=== PATIENT | male | born 1980 | race Caucasian/White ===

== ENCOUNTER 2019-04-23 09:02 | Emergency (ER) | payer BC ==
[~2019-04-23] VITALS: Ht 172.7 cm; Wt 97.7 kg
[2019-04-23] MEDS ORDERED: dayquil (09:12)
[2019-04-23] MEDS ORDERED: NS 1,000 ML IV ONE ×2 (09:45→11:15)
[2019-04-23] MEDS ORDERED: ALBUTEROL SULFATE 2.5 MG/0.5 ML INH NEB SOLN NEB ONE (10:00)
[2019-04-23 10:01] LABS: INFLUENZA A AMPLIFICATION NEGATIVE (NEGATIVE); INFLUENZA B AMPLIFICATION POSITIVE (NEGATIVE)
[2019-04-23 10:12] LABS: BASO % 0.5 % (0.0-1.0); HEMATOCRIT 54.3 % (42.0-52.0); HEMOGLOBIN 18.5 g/dl (13.5-17.5); LYMPH # 1.1 10^3/uL (1.5-5.0); LYMPH % 16.9 % (24.0-44.0); MEAN CORPUSCULAR HEMOGLOBIN 31.8 pg (27.0-33.0); MEAN CORPUSCULAR HGB CONC 34.1 g/dl (32.0-36.5); MEAN CORPUSCULAR VOLUME 93.3 fl (80.0-96.0); MONO # 0.7 10^3/uL (0.0-0.8); MONO % 11.3 % (0.0-5.0); NEUTROPHILS # 4.4 10^3/uL (1.5-8.5); NEUTROPHILS % 71.1 % (36.0-66.0); PLATELET COUNT, AUTOMATED 148 10^3/uL (150-450); RED BLOOD COUNT 5.82 10^6/uL (4.30-6.10); WHITE BLOOD COUNT 6.2 10^3/uL (4.0-10.0)
--- NOTE | 2019-04-23 10:35 | REP ---
PA and lateral chest, three views, two PA and single lateral views: There are no comparisons. The lung duke are clear. The cardiac size is normal. The rudy, mediastinum, and skeletal structures are unremarkable. Impression: Negative PA and lateral chest. Electronically Signed by Carlo Mercado MD 04/23/2019 10:27 A
[2019-04-23 12:00] VITALS: BP 129/77
[2019-04-23] MEDS ORDERED: ONDA4TAB6 PO (12:03)
== END 2019-04-23 12:53 | disposition home or self-care (01) ==
LOC: M ED 09:02
DX: J10.1 Influenza due to other identified influenza virus with other respiratory manifestations (principal); Z20.89 Contact with and (suspected) exposure to other communicable diseases; F17.200 Nicotine dependence, unspecified, uncomplicated; F12.10 Cannabis abuse, uncomplicated

== ENCOUNTER → 2021-08-03 | Outpatient (CLI) | payer OTHER, BC ==
[~2021-08-03] MED LIST: ONDA4TAB6 PO; dayquil
[2021-08-03 11:37] LABS: PLATELET COUNT, AUTOMATED 226 10^3/uL (150-450)
[2021-08-03 11:46] LABS: INR 0.91; PROTHROMBIN TIME 12.7 SECONDS (12.7-14.5)
[2021-08-03 11:47] LABS: PARTIAL THROMBOPLASTIN TIME 33.4 SECONDS (25.9-37.0)
== END ==
LOC: M LAB 10:42
PROVIDERS: ATTEND Physician Assistant
DX: M50.30 Other cervical disc degeneration, unspecified cervical region (principal)

== ENCOUNTER → 2022-03-25 | Outpatient (CLI) | payer SELFPAY | LOC: M OUTALCOH 07:36 | PROVIDERS: ATTEND Psychiatry & Neurology Psychiatry | DX: F10.10 Alcohol abuse, uncomplicated (principal) ==

== ENCOUNTER 2022-10-27 15:54 | Inpatient (IN) | payer MEDICAID, OTHER ==
[2022-10-27 17:59] LABS: HEMATOCRIT 55.7 % (42.0-52.0); HEMOGLOBIN 18.5 g/dl (13.5-17.5); MEAN CORPUSCULAR HEMOGLOBIN 32.3 pg (27.0-33.0); MEAN CORPUSCULAR HGB CONC 33.2 g/dl (32.0-36.5); MEAN CORPUSCULAR VOLUME 97.4 fl (80.0-96.0); PLATELET COUNT, AUTOMATED 234 10^3/uL (150-450); RED BLOOD COUNT 5.72 10^6/uL (4.30-6.10); WHITE BLOOD COUNT 14.4 10^3/uL (4.0-10.0)
[2022-10-27 18:20] LABS: ETHYL ALCOHOL (ETHANOL) 0.004 % (0.000-0.010)
[2022-10-27 18:21] LABS: ACETAMINOPHEN LEVEL < 2.0 UG/ML (10.0-20.0)
[2022-10-27 18:22] LABS: ALBUMIN 4.4 G/DL (3.2-5.2); ALKALINE PHOSPHATASE 72 U/L (46-116); ALT/SGPT 37 U/L (7.0-40); AST/SGOT 18 U/L (<34); BILIRUBIN,DIRECT 0.3 MG/DL (<0.4); BILIRUBIN,TOTAL 0.7 MG/DL (0.3-1.2); BLOOD UREA NITROGEN 7 MG/DL (9-23); CALCIUM LEVEL 9.9 MG/DL (8.5-10.1); CARBON DIOXIDE LEVEL 28 MMOL/L (20-31); CHLORIDE LEVEL 102 MMOL/L (98-107); CREATININE FOR GFR 0.87 MG/DL (0.70-1.30); GLOMERULAR FILTRATION RATE > 60.0 (>60); GLUCOSE, FASTING 112 MG/DL (60-100); POTASSIUM SERUM 3.8 MMOL/L (3.5-5.1); SALICYLATE LEVEL < 3.0 MG/DL (<30); SODIUM LEVEL 140 MMOL/L (136-145); TOTAL PROTEIN 7.3 G/DL (5.7-8.2)
[2022-10-27] MEDS ORDERED: NICOTINE 21MG/24HR 1 EA TRANSDERMAL TD PRN (21:45)
[2022-10-27] MEDS ORDERED: ACETAMINOPHEN TAB 650MG DOSE (2X325MG) PO PRN (21:45)
[2022-10-27] MEDS ORDERED: MOM 30ML SUSPENSION UDC PO PRN (21:45)
[2022-10-27] MEDS ORDERED: traZODone 50 MG TAB PO PRN (21:45)
[2022-10-27] MEDS ORDERED: MAALOX 30 ML SUSP *UDC PO PRN (21:45)
[2022-10-27] MEDS ORDERED: diphenhydrAMINE 25MG CAP PO PRN (21:45)
[2022-10-27] MEDS ORDERED: IBUPROFEN 400MG TAB PO PRN (21:45)
[2022-10-27] MEDS ORDERED: HOME MED LIST COMPLETE! XX SCH (22:20)
[2022-10-27 23:12] VITALS: BP 141/85; TEMP 97.8; O2SAT 98
[2022-10-28 06:54] VITALS: BP 106/75; TEMP 97.4; O2SAT 95
[2022-10-28 18:34] VITALS: BP 144/88; TEMP 98.7; O2SAT 98
[2022-10-28 18:37] VITALS: BP 137/79; TEMP 98.7; O2SAT 100
[2022-10-28] MEDS ORDERED: ALBUTEROL 90 MCG/ACT 8GM HFA INHALER INH PRN (19:20)
[2022-10-29 06:07] VITALS: BP 131/82; TEMP 97.3; O2SAT 99
[2022-10-29 18:34] VITALS: BP 133/85; TEMP 96.8; O2SAT 100
[2022-10-30 06:59] VITALS: BP 140/74; TEMP 97.2; O2SAT 100
[2022-10-30 18:24] VITALS: BP 142/78; TEMP 97.4; O2SAT 100
[2022-10-31 06:49] VITALS: BP 140/75; TEMP 97.2; O2SAT 98
== END 2022-10-31 11:59 | disposition home or self-care (01) | DRG 754 ==
LOC: M ED 15:54 → M ED INP 21:44 → M PSY 23:08
PROVIDERS: ADMIT Psychiatry & Neurology Psychiatry; ATTEND Student in an Organized Health Care Education/Training Program
DX: F43.21 Adjustment disorder with depressed mood (principal); R45.851 Suicidal ideations; M54.9 Dorsalgia, unspecified; G89.29 Other chronic pain; F17.200 Nicotine dependence, unspecified, uncomplicated; Z20.822 Contact with and (suspected) exposure to COVID-19; Z63.5 Disruption of family by separation and divorce

== ENCOUNTER 2023-01-28 17:51 | Inpatient (IN) | payer MEDICAID, OTHER ==
[~2023-01-28] VITALS: Ht 172.7 cm; Wt 83.0 kg
[2023-01-28] VITALS (7 sets, daily range): BP systolic 120–136; BP diastolic 59–70; TEMP 98.4; O2SAT 93–98
[2023-01-28] MEDS ORDERED: NS 1,000 ML IV ONE ×2 (18:15→19:45)
[2023-01-28] MEDS ORDERED: ACETAMINOPHEN TAB 650MG DOSE (2X325MG) PO ONE (18:15)
[2023-01-28] MEDS ORDERED: IBUPROFEN 600MG TAB PO ONE (18:20)
[2023-01-28 18:44] LABS: HEMATOCRIT 50.7 % (42.0-52.0); HEMOGLOBIN 17.6 g/dl (13.5-17.5); MEAN CORPUSCULAR HEMOGLOBIN 32.6 pg (27.0-33.0); MEAN CORPUSCULAR HGB CONC 34.7 g/dl (32.0-36.5); MEAN CORPUSCULAR VOLUME 93.9 fl (80.0-96.0); PLATELET COUNT, AUTOMATED 175 10^3/uL (150-450); WHITE BLOOD COUNT 14.7 10^3/uL (4.0-10.0)
[2023-01-28] MEDS ORDERED: AMPICILLIN SOD/SULBACTAM SOD 3 GM in D5W MINI-BAG PLUS 100 ML IV ONE (19:00)
[2023-01-28 19:03] LABS: INR 1.41; PROTHROMBIN TIME 16.8 SECONDS (12.5-14.5)
[2023-01-28 19:04] LABS: PARTIAL THROMBOPLASTIN TIME 29.3 SECONDS (24.8-34.2)
[2023-01-28 19:10] LABS: ALBUMIN 2.8 G/DL (3.2-5.2); ALKALINE PHOSPHATASE 78 U/L (46-116); ALT/SGPT 29 U/L (7.0-40); AST/SGOT 22 U/L (<34); BILIRUBIN,TOTAL 1.7 MG/DL (0.3-1.2); BLOOD UREA NITROGEN 20 MG/DL (9-23); CALCIUM LEVEL 8.3 MG/DL (8.5-10.1); CARBON DIOXIDE LEVEL 26 MMOL/L (20-31); CHLORIDE LEVEL 101 MMOL/L (98-107); CK-MB VALUE MASS < 1.0 NG/ML (<3.6); CREATININE FOR GFR 1.27 MG/DL (0.70-1.30); GLOMERULAR FILTRATION RATE > 60.0 (>60); GLUCOSE, FASTING 154 MG/DL (60-100); POTASSIUM SERUM 4.3 MMOL/L (3.5-5.1); SODIUM LEVEL 137 MMOL/L (136-145); TOTAL PROTEIN 5.4 G/DL (5.7-8.2)
[2023-01-28 19:12] LABS: CPK CREATINE PHOSPHOKINASE 90 U/L (46-171); MB/CK RELATIVE INDEX 1.11 (< OR =4)
[2023-01-28] MEDS ORDERED: ISOVUE-370 76% 100ML VIAL As Ordered ONE (19:20)
[2023-01-28 19:23] LABS: ATYPICAL LYMPH 6 % (0-5); EOSINOPHILS 2 % (0-3); MONOCYTES 2 % (0-5); NEUTROPHILS 88 % (28-66)
[2023-01-28 19:24] LABS: PLATELET ESTIMATE NORMAL (NORMAL); TOXIC VACUOLATION 2+
[2023-01-28] MEDS ORDERED: HOME MED LIST COMPLETE! XX SCH (19:50)
[2023-01-28] MEDS ORDERED: NOREPINEPHRINE 4MG IN D5 250ML 4 MG in IV 1 EA IV SCH ×2 (20:10)
[2023-01-28] MEDS ORDERED: NS 500 ML IV ONE (20:10)
[2023-01-28] MEDS ORDERED: NS 1,000 ML IV SCH (21:10)
[2023-01-28] MEDS ORDERED: ALBUTEROL SULFATE 2.5MG/0.5ML INH NEB SOLN NEB PRN (21:10)
[2023-01-28] MEDS ORDERED: HYDROCORTISONE 100MG/2ML VIAL IV STA (21:11)
[2023-01-28] MEDS: NOREPINEPHRINE 4MG IN D5 250ML 4 MG in IV 1 EA IV SCH ×2 (21:30)
[2023-01-28] MEDS ORDERED: VANCOMYCIN HCL 1,000 MG, VIAL MATE ADAPTER 1 EACH in D5W 250 ML IV ONE (22:00)
[2023-01-28] MEDS ORDERED: VANCOMYCIN HCL 750 MG, VIAL MATE ADAPTER 1 EACH in D5W 250 ML IV ONE (23:00)
[2023-01-29] VITALS (40 sets, daily range): BP systolic 92–124; BP diastolic 53–72; TEMP 97.3–101; O2SAT 94–99
[2023-01-29 00:01] LABS: PROCALCITONIN 3.38 ng/ml
[2023-01-29] MEDS: NOREPINEPHRINE 4MG IN D5 250ML 4 MG in IV 1 EA IV SCH ×2 (00:03)
[2023-01-29 00:22] LABS: HIV 1&2 SCREEN NEGATIVE (NEGATIVE)
[2023-01-29] MEDS: CLINDAMYCIN 600 MG in IV 1 EA IV SCH ×2 (01:30→06:39)
[2023-01-29] MEDS: PIPERACILLIN/TAZOBACTAM SOD 4.5 GM in D5W MINI-BAG PLUS 50 ML IV SCH ×4 (02:33→19:37)
[2023-01-29 04:51] LABS: MEAN CORPUSCULAR HGB CONC 33.4 g/dl (32.0-36.5); MEAN CORPUSCULAR VOLUME 95.7 fl (80.0-96.0); PLATELET COUNT, AUTOMATED 153 10^3/uL (150-450); WHITE BLOOD COUNT 14.5 10^3/uL (4.0-10.0)
[2023-01-29 04:58] LABS: HEMOGLOBIN 14.7 g/dl (13.5-17.5)
[2023-01-29 05:12] LABS: ALBUMIN 2.1 G/DL (3.2-5.2); ALKALINE PHOSPHATASE 60 U/L (46-116); ALT/SGPT 25 U/L (7.0-40); AST/SGOT 17 U/L (<34); BILIRUBIN,TOTAL 1.6 MG/DL (0.3-1.2); BLOOD UREA NITROGEN 19 MG/DL (9-23); CALCIUM LEVEL 7.5 MG/DL (8.5-10.1); CARBON DIOXIDE LEVEL 22 MMOL/L (20-31); CHLORIDE LEVEL 107 MMOL/L (98-107); GLOMERULAR FILTRATION RATE > 60.0 (>60); GLUCOSE, FASTING 215 MG/DL (60-100); MAGNESIUM LEVEL 1.5 MG/DL (1.8-2.4); POTASSIUM SERUM 4.3 MMOL/L (3.5-5.1); SODIUM LEVEL 139 MMOL/L (136-145); TOTAL PROTEIN 4.6 G/DL (5.7-8.2)
[2023-01-29 05:43] LABS: ATYPICAL LYMPH 1 % (0-5); BASOPHILS 1 % (0-1); LYMPHOCYTES 3 % (16-44); MONOCYTES 2 % (0-5); NEUTROPHILS 87 % (28-66); PLATELET ESTIMATE NORMAL (NORMAL)
[2023-01-29 05:54] LABS: ERYTHROCYTE SEDIMENTATION RATE 49 mm/hr (0-15)
[2023-01-29] MEDS ORDERED: HEPARIN SOD (PORCINE) 5000UNITS/ML 1ML VIAL/SYRINGE SC SCH (06:00)
[2023-01-29] MEDS ORDERED: VANCOMYCIN HCL 1,000 MG, VIAL MATE ADAPTER 1 EACH in NS 250 ML IV SCH (06:00)
[2023-01-29] MEDS ORDERED: LR 1,000 ML IV ONE (07:50)
[2023-01-29] MEDS ORDERED: ALBUTEROL SULFATE 2.5MG/0.5ML INH NEB SOLN NEB PRN (08:05)
[2023-01-29] MEDS: IPRATROPIUM 0.5MG/ALBUTEROL 2.5MG INH SOL UD 3ML (DUONEB) NEB SCH ×4 (08:28→19:14)
[2023-01-29] MEDS ORDERED: PANTOPRAZOLE 40MG VIAL IV SCH (09:00)
[2023-01-29] MEDS ORDERED: MAG SULF 1GM/100ML (MAG RUN) 1 GM in IV 1 EA IV ONE (09:00)
[2023-01-29] MEDS ORDERED: POTASSIUM PHOSPHATE INJ 30 MMOL in D5W 500 ML IV ONE (10:00)
[2023-01-29] MEDS: NS 1,000 ML IV SCH ×2 (11:10→19:37)
[2023-01-29] MEDS: ENOXAPARIN 40MG/0.4ML SYRINGE (J1650 PER 10MG) SC SCH (11:14)
[2023-01-29] MEDS: ACETAMINOPHEN 500 MG TAB PO PRN (16:21)
[2023-01-29] MEDS ORDERED: IBUPROFEN 800 MG TAB PO ONE (16:30)
[2023-01-30] VITALS (8 sets, daily range): BP systolic 98–125; BP diastolic 57–75; TEMP 98.1–101; O2SAT 98–99
[2023-01-30] MEDS: PIPERACILLIN/TAZOBACTAM SOD 4.5 GM in D5W MINI-BAG PLUS 50 ML IV SCH ×4 (01:57→19:54)
[2023-01-30] MEDS: NS 1,000 ML IV SCH (05:41)
[2023-01-30] MEDS: IPRATROPIUM 0.5MG/ALBUTEROL 2.5MG INH SOL UD 3ML (DUONEB) NEB SCH ×4 (07:46→19:29)
[2023-01-30 07:48] LABS: HEMATOCRIT 40.3 % (42.0-52.0); HEMOGLOBIN 13.7 g/dl (13.5-17.5); MEAN CORPUSCULAR HEMOGLOBIN 32.5 pg (27.0-33.0); MEAN CORPUSCULAR VOLUME 95.5 fl (80.0-96.0); PLATELET COUNT, AUTOMATED 137 10^3/uL (150-450); RED BLOOD COUNT 4.22 10^6/uL (4.30-6.10); WHITE BLOOD COUNT 10.1 10^3/uL (4.0-10.0)
[2023-01-30 08:00] LABS: ERYTHROCYTE SEDIMENTATION RATE 35 mm/hr (0-15)
[2023-01-30] MEDS: ENOXAPARIN 40MG/0.4ML SYRINGE (J1650 PER 10MG) SC SCH (08:05)
[2023-01-30 08:11] LABS: BASOPHILS 2 % (0-1); EOSINOPHILS 7 % (0-3); LYMPHOCYTES 3 % (16-44); MONOCYTES 1 % (0-5); NEUTROPHILS 79 % (28-66); PLATELET ESTIMATE NORMAL (NORMAL)
[2023-01-30 08:12] LABS: ANISOCYTOSIS 1+; TOXIC VACUOLATION 3+
[2023-01-30 08:32] LABS: PROCALCITONIN 2.37 ng/ml
[2023-01-30 08:37] LABS: ALKALINE PHOSPHATASE 54 U/L (46-116); ALT/SGPT 45 U/L (7.0-40); AST/SGOT 37 U/L (<34); BILIRUBIN,TOTAL 1.1 MG/DL (0.3-1.2); BLOOD UREA NITROGEN 16 MG/DL (9-23); CALCIUM LEVEL 7.6 MG/DL (8.5-10.1); CARBON DIOXIDE LEVEL 24 MMOL/L (20-31); CHLORIDE LEVEL 108 MMOL/L (98-107); CREATININE FOR GFR 0.77 MG/DL (0.70-1.30); GLOMERULAR FILTRATION RATE > 60.0 (>60); GLUCOSE, FASTING 95 MG/DL (60-100); SODIUM LEVEL 140 MMOL/L (136-145); TOTAL PROTEIN 4.3 G/DL (5.7-8.2)
[2023-01-30] MEDS ORDERED: NEOSPORIN OINT 0.9 GM PKT TOP ONE (09:00)
[2023-01-30] MEDS: ACETAMINOPHEN 500 MG TAB PO PRN ×2 (10:14→22:25)
[2023-01-30 15:06] LABS: MAGNESIUM LEVEL 1.7 MG/DL (1.8-2.4); PHOSPHORUS LEVEL 2.9 MG/DL (2.5-4.9)
[2023-01-30] MEDS ORDERED: IBUPROFEN 400MG TAB PO PRN (23:55)
[2023-01-31 01:58] VITALS: TEMP 98.9
[2023-01-31] MEDS: PIPERACILLIN/TAZOBACTAM SOD 4.5 GM in D5W MINI-BAG PLUS 50 ML IV SCH (02:00)
[2023-01-31 05:48] VITALS: BP 125/74; TEMP 98.1; O2SAT 99
[2023-01-31 06:01] LABS: BASO % 0.2 % (0.0-1.0); EOS # 0.7 10^3/uL (0.0-0.5); EOS % 6.7 % (0.0-3.0); HEMATOCRIT 37.8 % (42.0-52.0); HEMOGLOBIN 12.9 g/dl (13.5-17.5); LYMPH # 1.6 10^3/uL (1.5-5.0); MEAN CORPUSCULAR HEMOGLOBIN 32.5 pg (27.0-33.0); MEAN CORPUSCULAR HGB CONC 34.1 g/dl (32.0-36.5); MEAN CORPUSCULAR VOLUME 95.2 fl (80.0-96.0); MONO # 0.7 10^3/uL (0.0-0.8); MONO % 6.6 % (2.0-8.0); NEUTROPHILS # 6.8 10^3/uL (1.5-8.5); NEUTROPHILS % 69.8 % (36.0-66.0); PLATELET COUNT, AUTOMATED 139 10^3/uL (150-450); RED BLOOD COUNT 3.97 10^6/uL (4.30-6.10); WHITE BLOOD COUNT 9.8 10^3/uL (4.0-10.0)
[2023-01-31 06:27] LABS: ALBUMIN 1.9 G/DL (3.2-5.2); ALKALINE PHOSPHATASE 55 U/L (46-116); ALT/SGPT 45 U/L (7.0-40); AST/SGOT 34 U/L (<34); BILIRUBIN,TOTAL 1.2 MG/DL (0.3-1.2); BLOOD UREA NITROGEN 12 MG/DL (9-23); CALCIUM LEVEL 7.4 MG/DL (8.5-10.1); CARBON DIOXIDE LEVEL 26 MMOL/L (20-31); CHLORIDE LEVEL 108 MMOL/L (98-107); CREATININE FOR GFR 0.68 MG/DL (0.70-1.30); GLOMERULAR FILTRATION RATE > 60.0 (>60); GLUCOSE, FASTING 110 MG/DL (60-100); POTASSIUM SERUM 3.8 MMOL/L (3.5-5.1); SODIUM LEVEL 140 MMOL/L (136-145); TOTAL PROTEIN 4.1 G/DL (5.7-8.2)
[2023-01-31] MEDS: IPRATROPIUM 0.5MG/ALBUTEROL 2.5MG INH SOL UD 3ML (DUONEB) NEB SCH (07:31)
[2023-01-31] MEDS ORDERED: AMOX875T2 PO (09:19)
[2023-01-31 16:08] LABS: MYCOPLASMA PNEUMONIAE IgG 315 U/mL (0-99); MYCOPLASMA PNEUMONIAE IgM <770 U/mL (0-769)
[2023-02-01 14:09] LABS: BODY FLUID CULTURE Not indicated. (.); LEGIONELLA ANTIGEN URINE Negative (Negative); ORGANISM ID Not indicated. (.); SPECIMEN SOURCE Urine (.); URINE STREP PNEUMONIAE ANTIGEN Negative (Negative)
== END 2023-01-31 08:08 | disposition left against medical advice (07) | DRG 720 ==
LOC: M ED 17:51 → M ED INP 21:03 → M ICU 22:10 → M MSPAV 01-30 16:23
PROVIDERS: ADMIT Internal Medicine; ATTEND Student in an Organized Health Care Education/Training Program
DX: A40.3 Sepsis due to Streptococcus pneumoniae (principal); R65.21 Severe sepsis with septic shock; E87.20 Acidosis, unspecified; J13 Pneumonia due to Streptococcus pneumoniae; E86.0 Dehydration; E83.39 Other disorders of phosphorus metabolism; E83.42 Hypomagnesemia; F17.210 Nicotine dependence, cigarettes, uncomplicated; L03.012 Cellulitis of left finger; Z20.822 Contact with and (suspected) exposure to COVID-19